=== PATIENT | female | born 1980 | race Caucasian/White ===

== ENCOUNTER 2018-02-03 23:32 | Emergency (ER) | payer OTHER ==
[~2018-02-03] VITALS: Ht 167.6 cm; Wt 65.0 kg
[2018-02-03 23:47] VITALS: BP 138/82; PULSE 94; RESP 16; TEMP 97.6; O2SAT 98
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
--- NOTE | 2018-02-04 04:43 | PD ---
Physical Exam Narrative Please refer to previous providers documentation for details surrounding the patient's current visit. Data Data Last Documented VS Vital Signs Date Time Temp Pulse Resp B/P (MAP) Pulse Ox O2 Delivery O2 Flow Rate FiO2 02/04/18 05:02 83 18 131/88 (102) 98 Room Air 02/03/18 23:47 97.6 Orders Orders Orthostatic Vital Signs (02/03/18 23:53) Blood Glucose (02/03/18 23:53) Ed Discharge Order (02/04/18 05:31) [facility] Medical Record Reviewed: Yes Supervised Visit with CHARISSE: No Narrative Course Throughout the course of the evening, I have offered the patient medication to help her sleep. She intermittently becomes combative and upset with myself and staff because she wants to leave. She is unable to be reasoned with. I have explained to her it is for her safety. It is not safe for her to drive or taken over to [employer] in the middle of the night without me knowing that there is somebody at her destination to meet her. Patient does not have a phone number and will not call anybody for a ride or chicken picker assistance. I have explained to her several times that she will need to wait until the morning to reevaluate her sobriety at which time she will be discharged home if she is clinically sober. Patient chooses to stand at her doorway all night with her arms close. She does not want to go in the bed despite being asked to several times. She is loud on her phone, complaining about every staff and this organization. She has asked to contact the corporate office. I explained her that we do not have a corporate office but I contacted her charge nurse to come and speak to her and to provide her with any contact information that she may want. Again patient came in intoxicated. Lab work was not drawn for alcohol level. I have offered to draw this and she refuses, therefore when she is clinically sober or has a safe ride, she will be discharged home. 0530 patient is ambulatory. She is able to speak more clearly and is more reasonable in her discussion. Patient will be discharged at this time. Diagnosis Primary Impression: Medical clearance Additional Impression: Alcohol intoxication Qualified Codes: F10.929 - Alcohol use, unspecified with intoxication, unspecified Patient Instructions: General Instructions, Alcohol Intoxication (ED) Scripts No Active Prescriptions or Reported Meds Disposition: DISCHARGE HOME Condition: Stable Stefany Robert Feb 04, 2018 04:43
[2018-02-04 05:02] VITALS: BP 131/88; PULSE 83; RESP 18; O2SAT 98
== END 2018-02-04 05:54 | disposition home or self-care (01) ==
LOC: NEPD 23:32
DX: F10.929 Alcohol use, unspecified with intoxication, unspecified (principal)
CPT/HCPCS: 99281